=== PATIENT | male | born 1980 | race Caucasian/White ===

== ENCOUNTER 2021-10-22 11:34 | Emergency (ER) | payer BC, OTHER ==
[~2021-10-22] VITALS: Ht 185.4 cm; Wt 102.0 kg
--- NOTE | 2021-10-22 11:43 | ED Upper Extremity ---
General Chief Complaint: Upper Extremity Stated Complaint: LT FINGER INJ History of Present Illness Date Seen by Provider: Oct 22, 2021 Time Seen by Provider: 11:38 Initial Comments 41-year-old male presents with puncture wound to left index finger. Patient was at work and had a screwdriver slipped and has a puncture to the base of the left index finger. Patient is unsure when his last tetanus was. Patient suffered no other injury. Patient reports that it was initially bleeding quite a bit but is now stopped. No other systemic complaints. Allergies and Home Medications Allergies Coded Allergies: No Known Drug Allergies (Unverified , 10/22/21) Patient Home Medication List Home Medication List Reviewed: Yes Review of Systems Constitutional: no symptoms reported EENTM: no symptoms reported Respiratory: no symptoms reported Cardiovascular: no symptoms reported Gastrointestinal: no symptoms reported Musculoskeletal: no symptoms reported Skin: see HPI Physical Exam Vital Signs Capillary Refill : Height, Weight, BMI Height: '" Weight: lbs. oz. kg; BMI Method: General Appearance: WD/WN, no apparent distress HEENT: PERRL/EOMI Neck: full range of motion Cardiovascular: normal peripheral pulses, regular rate, rhythm Respiratory: lungs clear, normal breath sounds Gastrointestinal: soft; No distended Shoulder: normal inspection Elbow/Forearm: normal inspection Wrist: Yes normal inspection Hand: normal ROM, soft tissue tenderness Neurologic/Psychiatric: alert, normal mood/affect, oriented x 3 Skin: other (Small puncture wound left index finger) Progress/Results/Core Measures Results/Orders My Orders Orders - TREV MCKEON DO Tdap (Boostrix) Im (10/22/21 12:00) Departure Impression Primary Impression: Puncture wound of left index finger Disposition: 01 HOME, SELF-CARE Condition: Stable Departure-Patient Inst. Patient Instructions: Wound Care ED Add. Discharge Instructions: Keep clean with warm soapy water May use topical antibiotic or thin layer of Vaseline All discharge instructions reviewed with patient and/or family. Voiced understanding. TREV MCKEON DO Oct 22, 2021 11:43
[2021-10-22 11:58] VITALS: BP 144/101
[2021-10-22] MEDS ORDERED: TETANUS,DIPTH,PERTUSS P/F (BOOSTRIX) 0.5 ML VIAL IM ONE (12:00)
== END 2021-10-22 12:00 | disposition home or self-care (01) ==
LOC: ER FS 11:40
DX: S61.231A Puncture wound without foreign body of left index finger without damage to nail, initial encounter (principal); Z23 Encounter for immunization; W27.8XXA Contact with other nonpowered hand tool, initial encounter; Y92.59 Other trade areas as the place of occurrence of the external cause; Y99.0 Civilian activity done for income or pay
CPT/HCPCS: 90715; 99284